=== PATIENT | male | born 1930 | race Caucasian/White ===

== ENCOUNTER 2016-12-30 17:33 | Emergency (ER) | payer MEDICARE ==
[~2016-12-30] VITALS: Ht 182.9 cm; Wt 79.4 kg
[2016-12-30 17:43] VITALS: BP 138/88
[2016-12-30] MEDS ORDERED: NACL 0.9% 500 ML IV SCH (17:47)
--- NOTE | 2016-12-30 17:47 | NUR ---
86M BIBA C/O SOB X THIS AM; HX OF COPD; PATIENT STATES SOB OCCURED RANDOMLY THIS AM; PATIENT SPEAKING IN SHORT PHRASES; RR ARE EVEN AND [place]A; PATIENT IS AAOX4; PERRLA; NO NEURO DEFICITS NOTED AT THIS TIME; LS ARE DIMINISHED BL; PT IS NORMAL SINUS ON CM; ABD IS SOFT AND NON TENDER; PT DENIES ANY N/V/D AT THIS TIME; PT DENIES ANY URINARY COMPLAINTS; PT DENIES ANY FEVER, CP, OR COUGH AT THIS TIME; PATIENT STATES PAIN OF 0/10 AT THIS TIME; VSS; PATIENT POSITIONED FOR COMFORT; HOB ELEVATED; BEDRAILS UP X2; BED DOWN; MD DAVIS BY BEDSIDE; WILL CONTINUE TO MONITOR
--- NOTE | 2016-12-30 17:48 | NUR ---
PT NOTED WITH REDNESS, DISCOLORATION AND SWELLING TO TOP OF LEFT HAND; PER DAUGHTER, PT WAS RECENTLY HOSPITALIZED, AND IV INFILTRATED AT SITE; PT STATES NO PAIN OR DISCOMFORT TO SITE AT THIS TIME; LEFT RADIAL PULSE PALPABLE, LEFT CAP REFILL < 3 SECONDS, NO LOSS OF SENSATION TO LEFT HAND AT THIS TIME; ER MD DR. DAVIS NOTIFIED; WILL CONTINUE TO MONITOR.
[2016-12-30] MEDS ORDERED: methylPREDNISolone SS 125 MG in WATER STERILE 2 ML IV ONE (17:50)
[2016-12-30] MEDS ORDERED: LEVOFLOXACIN 500 MG/D5W PREMIX 100 ML IV ONE (17:50)
--- NOTE | 2016-12-30 17:55 | NUR ---
NASAL CANNULA OUT OF NASAL AREA PRONGS FACING DWON TOWARDS ORAL YARD ASSISTANT TO ATTEMPT ABG PROCEDURE AT A LATER TIME
--- NOTE | 2016-12-30 18:02 | NUR ---
PER URSULA/RN MD DR. JOEY DAVIS REQUEST TITRATION TO 2LPM VIA NC THEN DRAW ABG WORKSHOP MANAGER TO ENDORSE TO NOCS
[2016-12-30] MEDS ORDERED: PRIM50TA24 PO (18:05)
[2016-12-30] MEDS ORDERED: [UNRECOGNIZED DRUG - CODE] INH (18:05)
[2016-12-30] MEDS ORDERED: ATRN INH (18:05)
[2016-12-30] MEDS ORDERED: ALBU3SOL IH (18:05)
[2016-12-30] MEDS ORDERED: MIRT15TA PO (18:05)
[2016-12-30] MEDS ORDERED: WARF3TAB PO (18:05)
[2016-12-30] MEDS ORDERED: METO50TA99 PO (18:05)
[2016-12-30] MEDS ORDERED: BUS5 PO (18:05)
[2016-12-30] MEDS ORDERED: AMOX-999 PO (18:05)
[2016-12-30] MEDS ORDERED: DILT60TA97 PO (18:05)
[2016-12-30 18:19] LABS: BASOPHILS # (AUTO) 0.1 K/uL (0.00-0.22); BASOPHILS % (AUTO) 1.1 % (0.0-2.0); EOSINOPHILS # (AUTO) 0.4 K/uL (0-0.4); EOSINOPHILS % (AUTO) 3.8 % (0.0-4.0); HEMATOCRIT 34.7 % (36-52); HEMOGLOBIN 11.5 g/dL (12.0-18.0); LYMPHOCYTES # (AUTO) 0.7 K/uL (2.0-11.5); LYMPHOCYTES % (AUTO) 6.9 % (20.5-51.1); MEAN CORPUSCULAR HEMOGLOBIN 31 pg (27-31); MEAN CORPUSCULAR HGB CONC 33 g/dL (33-37); MEAN CORPUSCULAR VOLUME 94 fL (80-94); MONOCYTES # (AUTO) 0.4 K/uL (0.8-1.0); MONOCYTES % (AUTO) 4.1 % (1.7-9.3); NEUTROPHILS # (AUTO) 9.1 K/uL (1.8-7.7); NEUTROPHILS % (AUTO) 84.1 % (42.2-75.2); PLATELET COUNT (AUTO) 158 K/uL (140-450); RED BLOOD CELL COUNT(AUTO) 3.69 MIL/uL (4.20-6.10); RED CELL DISTRIBUTION WIDTH 13.6 % (11.6-13.7); WHITE BLOOD COUNT (AUTO) 10.7 K/uL (4.8-10.8)
[2016-12-30 18:32] LABS: ANION GAP 9.5 (8-16); CARBON DIOXIDE 35.1 mmol/L (21-32); CHLORIDE 99 mmol/L (98-107); CREATININE 0.9 mg/dL (0.7-1.3); GLUCOSE 222 mg/dL (74-106); POTASSIUM 4.6 mmol/L (3.5-5.1); SODIUM SERUM 139 mmol/L (136-145); UREA NITROGEN, BLOOD 25 mg/dL (7-18)
[2016-12-30 18:38] LABS: ALBUMIN 2.7 g/dL (3.4-5.0); ASPARTATE AMINOTRANSFERASE 23 U/L (15-37); TOTAL BILIRUBIN 0.3 mg/dL (0.0-1.0)
--- NOTE | 2016-12-30 19:00 | NUR ---
PLACED ON BIPAP PER MARLEN CASTRO RN AND DR ORTEGA NOTIFIED, TOLERATING WELL, FAMILY AT BEDSIDE, WILL CONTINUE TO MONITOR
--- NOTE | 2016-12-30 19:00 | NUR ---
PT ON BIPAP PER MD DAVIS ORDER; PATIENT TOLERATING WELL; DAUGHTER BY BEDSIDE; PATIENT DENIES ANY PAIN AT THIS TIME; VSS; NO ACUTE RESP DISTRESS; WILL CONTINUE TO MONITOR
--- NOTE | 2016-12-30 19:15 | NUR ---
REPORT RECEIVED FROM TREVA GEE
--- NOTE | 2016-12-30 19:25 | NUR ---
Pt report given to Yeyo taylor. Transfer of care at this time.
--- NOTE | 2016-12-30 20:00 | NUR ---
PT SITTING UP, NO ACUTE RESP. DISTRESS NOTED AT THIS TIME. PT ON BIPAP WITH SETTINGS OF 12/6, RATE OF 14, FIO2 OF 30%. LEFT HAND HAS DISCOLORATION FROM PIV START IN THE FIELD THAT INFILTRATED. PT ALERT AND ANSWERING QUESTIONS APPROPRIATELY. FAMILY AT BEDSIDE. DIMINISHED BREATH SOUNDS BILATERALLY. PT DENIES PAIN AT THIS TIME.
--- NOTE | 2016-12-30 21:30 | NUR ---
CALLED [facility], , TALKED TO JORGE TO GIVE REPORT TO RN TAKING PT. RN UNABLE TO TAKE REPORT AT THIS TIME. JORGE STATED RECREATION THERAPY AIDE WOULD CALL BACK FOR REPORT.
--- NOTE | 2016-12-30 21:50 | NUR ---
[facility] HERE TO TAKE PT TO [facility]. CHARGE NURSE FROM [facility] HAS NOT CALLED BACK. BOB RN CC TEAM HERE WITH TRANSPORT TEAM HAS TAKEN REPORT. PT IN STABLE CONDITION AND READY TO BE TRANSPORTED TO [facility] IN [place].
--- NOTE | 2016-12-30 22:05 | NUR ---
RN FROM [place] CALLED BACK TO TAKE REPORT, TRANSFERRED ME TO 2ND RN WHO WAS NOT READY TO TAKE REPORT, THEN CALL WAS DISCONNECTED.
--- NOTE | 2016-12-30 22:11 | NUR ---
PT TAKEN BY [facility] TO [facility] ROOM 221
[2016-12-30 23:21] VITALS: BP 124/60
--- NOTE | 2016-12-30 23:25 | NUR ---
AFTER 4-5 ATTEMPTS OF GIVING REPORT TO [facility], I TALKED WITH TREVA MATHIS AND WAS ABLE TO GIVE REPORT ON PT. REPORT WAS GIVEN TO TREVA PAN FROM [facility] TEAM @ [id number].
--- NOTE | 2016-12-30 23:30 | NUR ---
Patient to be transferred to [facility]. Is being transferred due to INSURANCE BEING [employer]AS[employer]. Receiving facility has accepting physician and available space. ER physician has signed transfer form. Patient or responsible libertarian has agreed to transfer and signed form. Patient belongings inventoried and will be sent with patient. Copy of nursing notes, lab reports, EKG, Physicians Orders and X-rays to be sent with patient. Report called to TREVA MATHIS at receiving facility. [facility] ambulance service has been called for transfer. TREVA ROJSA CCR[facility] FROM [facility] WITH [facility] TO RECEIVE PT AND GET REPORT.
--- NOTE | 2017-01-07 20:01 | NUR ---
LATE NOTE ENTRY FOR 12/30/16: MEDICATION NS BOLUS 500CC START TIME: 18:32 AND END TIME 19:30 MEDICATION LEVOFLOXACIN START TIME: 18:49 AND END TIME 19:50
== END 2016-12-30 22:11 | disposition short-term general hospital (02) ==
LOC: MED 17:33
DX: J96.90 Respiratory failure, unspecified, unspecified whether with hypoxia or hypercapnia (principal); I82.4Z1 Acute embolism and thrombosis of unspecified deep veins of right distal lower extremity; D64.9 Anemia, unspecified; E11.9 Type 2 diabetes mellitus without complications; I10 Essential (primary) hypertension
CPT/HCPCS: 36600; 71010; 80053; 82803; 82948; 83605; 83880; 84484; 85025; 85610; 85730; 87040; 93005; 96365; 96375; 99291; J1956; J2930; J7030